=== PATIENT | male | born 1950 ===

== ENCOUNTER 2020-06-06 10:05 | Inpatient (IN) ==
[~2020-06-06 10:05] MED LIST: Buffered Lidocaine 1% SYRIN 1 ml INTRADERM ONE; Famotidine IV 10 MG/ML 2 ml VIAL (20 mg) IV ONE; Lactated Ringers 1000 ml BAG 1,000 ML IV SCH; Lidocaine 2% PF 5 ML VIAL ONE; Midazolam 2 mg/2 ml VIAL 1 mg/ml 2 ml VIAL (2 mg) ONE; Ondansetron 4 mg VIAL 2 MG/ML 2 ml VIAL ONE; Propofol 10 MG/ML 20 ML BTL ONE; Rocuronium 50 mg VIAL 10 mg/ml 5 ml VIAL (50 mg) ONE; Succinylcholine 200 mg VIAL 20 mg/ml 10 ml VIAL (200 mg) ONE; fentaNYL 250 mcg/5 ml 50 MCG/ML 5 ml VIAL (250 MCG) ONE
[2020-06-06] MEDS ORDERED: Buffered Lidocaine 1% SYRIN 1 ml INTRADERM ONE (10:19)
[2020-06-06] MEDS ORDERED: Famotidine IV 10 MG/ML 2 ml VIAL (20 mg) ONE (10:19)
[2020-06-06] MEDS ORDERED: Bacitracin INJECTION 50,000 UNITS ONE ×3 (10:49→19:46)
[2020-06-06] MEDS ORDERED: Bupivacaine 0.25% SDV 30 ML ONE (10:49)
[2020-06-06] MEDS ORDERED: Vancomycin 1500 MG IV - x ONCE IVPB ONE (11:00)
[2020-06-06] MEDS ORDERED: Propofol 10 mg/ml 100 ML BTL 300 ML ONE (11:23)
[2020-06-06] MEDS ORDERED: Remifentanil 2 MG VIAL ONE ×3 (11:37→17:33)
[2020-06-06] MEDS ORDERED: Lidocaine 1% w EPI 1:100,000 MDV 20 ML VIAL ONE (12:11)
[2020-06-06] MEDS ORDERED: Prochlorperazine 5 mg/ml 2 ml VIAL (10 mg) IV PRN (12:44)
[2020-06-06] MEDS ORDERED: Naloxone 0.4 mg VIAL 0.4 mg/ml 1 ml VIAL IV PRN (12:44)
[2020-06-06] MEDS ORDERED: fentaNYL 100 mcg/2 ml 50 MCG/ML VIAL IV PRN (12:44)
[2020-06-06] MEDS ORDERED: Morphine 4 MG/ML VIAL (1 ml) IV PRN (12:44)
[2020-06-06] MEDS ORDERED: oxyCODONE/Acetamin 5/325 mg TAB PO PRN (12:44)
[2020-06-06] MEDS ORDERED: EPHEDrine (Pressors) 50 MG/ML VIAL ONE (12:58)
[2020-06-06] MEDS ORDERED: Dexamethasone IV 4 MG/ML VIAL 1 ml VIAL ONE ×2 (13:18→15:06)
[2020-06-06] MEDS ORDERED: Glycopyrrolate IV 0.2 MG/ML 1 ML VIAL ONE (15:05)
[2020-06-06] MEDS ORDERED: Phenylephrine IV 10 MG/ML 1 ml VIAL ONE (15:10)
[2020-06-06] MEDS ORDERED: Propofol 10 mg/ml 100 ML BTL 100 ML ONE ×2 (16:06→17:38)
[2020-06-06] MEDS ORDERED: Acetaminophen IV 1 GM/100ML 100 ML ONE (18:06)
[2020-06-06] MEDS ORDERED: fentaNYL 100 mcg/2 ml 50 MCG/ML VIAL ONE ×2 (19:48→20:14)
[2020-06-06] MEDS ORDERED: Ondansetron 4 mg VIAL 2 MG/ML 2 ml VIAL IV PRN (20:33)
[2020-06-06] MEDS ORDERED: HYDROmorphone 0.5 MG/0.5 ML SYRINGE IV SLOW PU PRN (20:44)
[2020-06-06] MEDS ORDERED: Oxymetazoline 0.05% NASAL SPR 15 ML BTL PRN (20:50)
[2020-06-06] MEDS ORDERED: TESTOSTERONE GEL 25 MG (NF) IN 2.5 GM SIZE PACKET TOPICAL SCH (21:00)
[2020-06-06] MEDS ORDERED: Levalbuterol HFA INHALER MDI INH PRN (21:00)
[2020-06-06] MEDS ORDERED: Lactated Ringers 1000 ml BAG 1,000 ML IV SCH (21:00)
[2020-06-06] MEDS: Fluticasone NASAL SPRAY 50MCG 16 gm SPRAY BTL BOTH NARES SCH ×2 (22:12→22:17)
[2020-06-06] MEDS: Magnesium Hydroxide LIQ 30 ML UDC PO SCH (22:13)
[2020-06-06] MEDS: IPRATROPIUM BR (NF)0.06% NASAL 1 SPRAY BTL BOTH NARES SCH (22:17)
[2020-06-06] MEDS ORDERED: Albuterol 2.5mg/3 ml (0.083%) NEB.SOLN INH PRN (22:20)
[2020-06-06] MEDS ORDERED: Dextrose 50% Syringe 50 ml 25 GM/50 ML SYRINGE IV PUSH PRN (22:21)
[2020-06-06] MEDS: VIT B6 MAG CIT OXID POTASS CIT PO SCH (22:26)
[2020-06-06] MEDS: HYDROcodone/ACETAMIN 5/325 mg TAB PO PRN (23:10)
[2020-06-07] MEDS: HYDROcodone/ACETAMIN 5/325 mg TAB PO PRN ×3 (02:38→21:58)
[2020-06-07 04:35] LABS: ABS Lymphocytes 0.7 10^3/ul (1.0-4.8); ABS Monocytes 0.5 10^3/ul (0-0.8); ABS Neutrophils 11.2 10^3/ul (1.5-7.7); Hematocrit 43 % (42-52); Hemoglobin 14.8 g/dL (14.0-18.0); Lymphocyte % 5.6 %; Mean Corpuscular HGB Conc 35 g/dL (31-36); Mean Corpuscular Hemoglobin 32 pg (27-31); Mean Corpuscular Volume 93 fL (80-94); Mean Platelet Volume 7.7 fL (7.4-10.4); Platelet Count 193 10^3/uL (150-450); Red Blood Count 4.58 10^6 /uL (4.18-5.48); Red Cell Distribution Width 14 % (10-15); White Blood Count 12.4 10^3/uL (3.5-10.8)
[2020-06-07 04:54] LABS: BUN/Creatinine Ratio 23.8 (8-20); Calcium 8.9 mg/dL (8.6-10.3); EGFR African American 87.9 (>60); EGFR Non-African American 72.6 (>60); Potassium 4.5 mmol/L (3.5-5.0)
[2020-06-07] MEDS: Mometasone/Formoter 200/5 MDI INH SCH ×2 (08:01→20:35)
[2020-06-07] MEDS: Vitamin THERAPEUTIC TAB PO SCH (08:40)
[2020-06-07] MEDS: IPRATROPIUM BR (NF)0.06% NASAL 1 SPRAY BTL BOTH NARES SCH ×2 (08:41→20:26)
[2020-06-07] MEDS: Fluticasone NASAL SPRAY 50MCG 16 gm SPRAY BTL BOTH NARES SCH ×2 (08:41→20:26)
[2020-06-07] MEDS: VIT B6 MAG CIT OXID POTASS CIT PO SCH ×2 (08:41→20:26)
[2020-06-07] MEDS: Magnesium Hydroxide LIQ 30 ML UDC PO SCH ×2 (08:46→20:27)
[2020-06-07] MEDS ORDERED: Cholecalciferol (VIT D3) 1,000 unit TAB PO SCH (18:00)
[2020-06-08 07:06] LABS: Hematocrit 38 % (42-52); Hemoglobin 13.4 g/dL (14.0-18.0); Mean Corpuscular HGB Conc 35 g/dL (31-36); Mean Corpuscular Hemoglobin 33 pg (27-31); Mean Corpuscular Volume 93 fL (80-94); Mean Platelet Volume 8.7 fL (7.4-10.4); Platelet Count 172 10^3/uL (150-450); Red Blood Count 4.11 10^6 /uL (4.18-5.48); Red Cell Distribution Width 14 % (10-15); White Blood Count 9.4 10^3/uL (3.5-10.8)
[2020-06-08] MEDS: VIT B6 MAG CIT OXID POTASS CIT PO SCH (08:21)
[2020-06-08] MEDS: IPRATROPIUM BR (NF)0.06% NASAL 1 SPRAY BTL BOTH NARES SCH (08:21)
[2020-06-08] MEDS: Magnesium Hydroxide LIQ 30 ML UDC PO SCH (08:23)
[2020-06-08] MEDS ORDERED: Polyethylene Glycol 3350 17 GM PACKET PO PRN (08:23)
[2020-06-08] MEDS: Mometasone/Formoter 200/5 MDI INH SCH (08:24)
[2020-06-08] MEDS: Vitamin THERAPEUTIC TAB PO SCH (08:25)
[2020-06-08] MEDS: Fluticasone NASAL SPRAY 50MCG 16 gm SPRAY BTL BOTH NARES SCH (08:25)
[2020-06-08 11:39] VITALS: BP 115/48
[2020-06-09] MEDS ORDERED: Scopolamine PATCH Remove NOTE PATCH OFF ONE (06:00)
== END 2020-06-08 14:40 | DRG 454 ==
LOC: AA 10:05 → ICU 21:01 → SSU 06-07 08:19
PROVIDERS: ADMIT Neurological Surgery; ATTEND Neurological Surgery

== ENCOUNTER 2020-06-08 13:10 | Inpatient (IN) ==
[2020-06-08] MEDS ORDERED: Magnesium Hydroxide LIQ 30 ML UDC PO PRN (15:46)
[2020-06-08] MEDS ORDERED: Senna TAB 8.6 mg TAB PO PRN (15:46)
[2020-06-08] MEDS ORDERED: Dextrose 50% Syringe 50 ml 25 GM/50 ML SYRINGE IV PUSH PRN (16:00)
[2020-06-08] MEDS ORDERED: HYDROcodone/ACETAMIN 5/325 mg TAB PO PRN ×2 (17:13→17:17)
[2020-06-08] MEDS ORDERED: Polyethylene Glycol 3350 17 GM PACKET PO PRN (17:20)
[2020-06-08] MEDS: Cholecalciferol (VIT D3) 1,000 unit TAB PO SCH (17:49)
[2020-06-08] MEDS: Mometasone/Formoter 200/5 MDI INH SCH (20:53)
[2020-06-08] MEDS: Fluticasone NASAL SPRAY 50MCG 16 gm SPRAY BTL BOTH NARES SCH (20:54)
[2020-06-09 04:49] LABS: ABS Lymphocytes 1.4 10^3/ul (1.0-4.8); ABS Monocytes 0.7 10^3/ul (0-0.8); ABS Neutrophils 6.3 10^3/ul (1.5-7.7); Eosinophil % 0.4 %; Hematocrit 39 % (42-52); Hemoglobin 13.6 g/dL (14.0-18.0); Lymphocyte % 17.1 %; Mean Corpuscular HGB Conc 35 g/dL (31-36); Mean Corpuscular Hemoglobin 33 pg (27-31); Mean Corpuscular Volume 93 fL (80-94); Mean Platelet Volume 7.8 fL (7.4-10.4); Platelet Count 168 10^3/uL (150-450); Red Cell Distribution Width 14 % (10-15); White Blood Count 8.4 10^3/uL (3.5-10.8)
[2020-06-09 05:05] LABS: BUN/Creatinine Ratio 22.1 (8-20); EGFR Non-African American 87.4 (>60); Potassium 3.8 mmol/L (3.5-5.0)
[2020-06-09 05:06] LABS: Albumin 3.7 g/dL (3.2-5.2); Albumin/Globulin Ratio 1.5 (1-3); Calcium 8.4 mg/dL (8.6-10.3); EGFR African American 105.8 (>60); Globulin 2.4 g/dL (2-4); Total Bilirubin 0.8 mg/dL (0.2-1.0); Total Protein 6.1 g/dL (6.4-8.9)
[2020-06-09] MEDS: Mometasone/Formoter 200/5 MDI INH SCH ×2 (08:23→20:14)
[2020-06-09] MEDS: Vitamin THERAPEUTIC TAB PO SCH (08:23)
[2020-06-09] MEDS: Fluticasone NASAL SPRAY 50MCG 16 gm SPRAY BTL BOTH NARES SCH ×2 (08:23→20:13)
[2020-06-09] MEDS ORDERED: Ondansetron ODT 4 mg TAB 4 MG TAB SL PRN (11:19)
[2020-06-09] MEDS ORDERED: Ondansetron 4 mg VIAL 2 MG/ML 2 ml VIAL IV PRN (12:28)
[2020-06-09] MEDS ORDERED: Prochlorperazine 5 mg/ml 2 ml VIAL (10 mg) IV PRN (13:36)
[2020-06-09] MEDS: NS 0.9% 1000 ml BAG 1,000 ML IV SCH (15:13)
[2020-06-09] MEDS: Cholecalciferol (VIT D3) 1,000 unit TAB PO SCH (17:42)
[2020-06-10] MEDS: NS 0.9% 1000 ml BAG 1,000 ML IV SCH (07:40)
[2020-06-10] MEDS: Fluticasone NASAL SPRAY 50MCG 16 gm SPRAY BTL BOTH NARES SCH ×2 (09:07→21:24)
[2020-06-10] MEDS: Vitamin THERAPEUTIC TAB PO SCH (09:07)
[2020-06-10] MEDS: Mometasone/Formoter 200/5 MDI INH SCH ×2 (12:13→21:24)
[2020-06-10] MEDS: Cholecalciferol (VIT D3) 1,000 unit TAB PO SCH (19:20)
[2020-06-11] MEDS ORDERED: Levalbuterol HFA INHALER MDI INH PRN (10:14)
[2020-06-11] MEDS: [UNRECOGNIZED DRUG - OTHER] PO SCH ×2 (10:28→20:16)
[2020-06-11] MEDS: Mometasone/Formoter 200/5 MDI INH SCH ×2 (10:49→20:14)
[2020-06-11] MEDS: Fluticasone NASAL SPRAY 50MCG 16 gm SPRAY BTL BOTH NARES SCH ×2 (10:52→20:15)
[2020-06-11] MEDS: Vitamin THERAPEUTIC TAB PO SCH (10:53)
[2020-06-11] MEDS: COENZYME Q10 PO SCH (14:30)
[2020-06-11] MEDS: [UNRECOGNIZED DRUG - OTHER] PO SCH (14:30)
[2020-06-11] MEDS: Cholecalciferol (VIT D3) 1,000 unit TAB PO SCH (17:09)
[2020-06-11] MEDS: Oxymetazoline 0.05% NASAL SPR 15 ML BTL BOTH NARES SCH (20:28)
[2020-06-12] MEDS: Mometasone/Formoter 200/5 MDI INH SCH ×2 (09:02→20:25)
[2020-06-12] MEDS: Vitamin THERAPEUTIC TAB PO SCH (09:53)
[2020-06-12] MEDS: Fluticasone NASAL SPRAY 50MCG 16 gm SPRAY BTL BOTH NARES SCH ×2 (09:54→20:25)
[2020-06-12] MEDS: COENZYME Q10 PO SCH (09:56)
[2020-06-12] MEDS: [UNRECOGNIZED DRUG - OTHER] PO SCH (09:56)
[2020-06-12] MEDS: [UNRECOGNIZED DRUG - OTHER] PO SCH ×2 (09:56→20:30)
[2020-06-12] MEDS ORDERED: Scopolamine PATCH Remove NOTE PATCH OFF SCH (15:00)
[2020-06-12] MEDS: Cholecalciferol (VIT D3) 1,000 unit TAB PO SCH (17:32)
[2020-06-12] MEDS: Oxymetazoline 0.05% NASAL SPR 15 ML BTL BOTH NARES SCH (20:26)
[2020-06-13] MEDS: Mometasone/Formoter 200/5 MDI INH SCH ×2 (08:48→20:27)
[2020-06-13] MEDS: Fluticasone NASAL SPRAY 50MCG 16 gm SPRAY BTL BOTH NARES SCH ×2 (10:40→20:23)
[2020-06-13] MEDS: Vitamin THERAPEUTIC TAB PO SCH (10:41)
[2020-06-13] MEDS: [UNRECOGNIZED DRUG - OTHER] PO SCH ×2 (10:47→20:22)
[2020-06-13] MEDS: [UNRECOGNIZED DRUG - OTHER] PO SCH (10:47)
[2020-06-13] MEDS: COENZYME Q10 PO SCH (10:47)
[2020-06-13] MEDS: Cholecalciferol (VIT D3) 1,000 unit TAB PO SCH (17:10)
[2020-06-13] MEDS ORDERED: Calcium Carb (TUMS) 500 mg CHEW TAB PO PRN (19:09)
[2020-06-13] MEDS: Oxymetazoline 0.05% NASAL SPR 15 ML BTL BOTH NARES SCH (20:24)
[2020-06-14] MEDS: Vitamin THERAPEUTIC TAB PO SCH (09:00)
[2020-06-14] MEDS: Fluticasone NASAL SPRAY 50MCG 16 gm SPRAY BTL BOTH NARES SCH ×2 (09:01→19:58)
[2020-06-14] MEDS: Mometasone/Formoter 200/5 MDI INH SCH ×2 (09:02→20:00)
[2020-06-14] MEDS: COENZYME Q10 PO SCH (09:04)
[2020-06-14] MEDS: [UNRECOGNIZED DRUG - OTHER] PO SCH (09:04)
[2020-06-14] MEDS: [UNRECOGNIZED DRUG - OTHER] PO SCH ×2 (09:05→19:58)
[2020-06-14] MEDS: Cholecalciferol (VIT D3) 1,000 unit TAB PO SCH (17:11)
[2020-06-14] MEDS: Oxymetazoline 0.05% NASAL SPR 15 ML BTL BOTH NARES SCH (19:58)
[2020-06-15 07:21] VITALS: BP 119/53
[2020-06-15] MEDS: Vitamin THERAPEUTIC TAB PO SCH (08:58)
[2020-06-15] MEDS: COENZYME Q10 PO SCH (08:59)
[2020-06-15] MEDS: [UNRECOGNIZED DRUG - OTHER] PO SCH (08:59)
[2020-06-15] MEDS: [UNRECOGNIZED DRUG - OTHER] PO SCH (08:59)
[2020-06-15] MEDS: Mometasone/Formoter 200/5 MDI INH SCH (09:00)
[2020-06-15] MEDS: Fluticasone NASAL SPRAY 50MCG 16 gm SPRAY BTL BOTH NARES SCH (09:00)
== END 2020-06-15 14:10 | disposition home health service (06) | DRG 561 ==
LOC: PMRU 14:55
PROVIDERS: ADMIT Physical Medicine & Rehabilitation; ATTEND Physical Medicine & Rehabilitation